=== PATIENT | male | born 1945 | race Caucasian/White ===

== ENCOUNTER → 2017-02-12 | Outpatient (CLI) | payer MEDICARE, OTHER ==
[~2017-02-12] VITALS: Ht 182.9 cm; Wt 97.7 kg
[~2017-02-12] MED LIST: AMLO10TA2 PO; AMLO10TA4 PO; ASPI-496 PO; ATOR40TA78 PO; CHOL10003 PO; CLOP75TA PO; CLOP75TA22 PO; ERGO500017 PO; LABE300T PO; LISI1TAB5 PO; METF750T2 PO; METHOCARBAMOL PO; MORP15TA39 PO; OXYC-302 PO; SPIRONOLACTONE PO; TIZANIDINE PO
[2017-02-12 11:11] LABS: HEMOGLOBIN 14.6 g/dL (13.7-18.0)
[2017-02-12 11:23] LABS: ASPARTATE AMINO TRANSFERASE 18 U/L (15-37); BLOOD UREA NITROGEN 8 mg/dL (7-18)
== END | disposition home or self-care (01) ==
LOC: STAR 09:52 → EDSTATUS 02-14 10:00
PROVIDERS: ATTEND Neurological Surgery
DX: Z01.818 Encounter for other preprocedural examination (principal); J44.9 Chronic obstructive pulmonary disease, unspecified; I10 Essential (primary) hypertension; M48.06 Spinal stenosis, lumbar region; R79.1 Abnormal coagulation profile; F17.200 Nicotine dependence, unspecified, uncomplicated
CPT/HCPCS: 36415; 71020; 80053; 81003; 85025; 85610; 85730; 86850; 86900; 93005

== ENCOUNTER → 2017-02-26 | Outpatient (CLI) | payer MEDICARE, OTHER ==
[~2017-02-26] MED LIST changes: +REGADENOSON 0.4 MG/5 ML SYRINGE ONE
== END | disposition home or self-care (01) ==
LOC: CFH 06:57
PROVIDERS: ATTEND Internal Medicine Cardiovascular Disease
DX: Z01.810 Encounter for preprocedural cardiovascular examination (principal); I08.1 Rheumatic disorders of both mitral and tricuspid valves; I37.1 Nonrheumatic pulmonary valve insufficiency; I10 Essential (primary) hypertension
CPT/HCPCS: 78452; 93017; 93306; A9502; J2785

== ENCOUNTER 2017-04-17 05:35 | Inpatient (IN) | payer MEDICARE, OTHER ==
[~2017-04-17] VITALS: Ht 182.9 cm; Wt 102.0 kg
[~2017-04-17 05:35] MED LIST changes: +LISI1TAB3 PO; -REGADENOSON 0.4 MG/5 ML SYRINGE ONE
[2017-04-17] MEDS ORDERED: AMLO5TAB2 PO (06:05)
[2017-04-17] MEDS ORDERED: OXYC-229 PO (06:05)
[2017-04-17 06:06] VITALS: BP 145/85
[2017-04-17] MEDS ORDERED: LACTATED RINGERS 1,000 ML IV SCH (06:10)
[2017-04-17] MEDS ORDERED: BACITRACIN 50,000 UNIT ONE (06:20)
[2017-04-17] MEDS ORDERED: BUPIVACAINE/PF-EPI 0.25% 1:200K ONE (06:20)
[2017-04-17] MEDS ORDERED: VANCOMYCIN 1,000 MG ONE ×2 (06:20→09:35)
[2017-04-17] MEDS ORDERED: THROMBIN 5,000 UNIT VIAL TP ONE (06:20)
[2017-04-17] MEDS ORDERED: REMIFENTANIL 2 MG ONE (06:54)
[2017-04-17] MEDS ORDERED: FENTANYL PF 250 MCG/5ML ONE (06:55)
[2017-04-17] MEDS ORDERED: MIDAZOLAM 1 MG/ML, 2ML ONE ×2 (06:55→10:28)
[2017-04-17] MEDS ORDERED: PROPOFOL 10 MG/ML, 20ML ONE (07:05)
[2017-04-17] MEDS ORDERED: ONDANSETRON 2MG/ML, 2ML ONE (07:05)
[2017-04-17] MEDS ORDERED: PROPOFOL 10 MG/ML, 50ML ONE (07:05)
[2017-04-17] MEDS ORDERED: DEXAMETHASONE 4 MG/ML, 1ML ONE (07:05)
[2017-04-17] MEDS ORDERED: CEFAZOLIN 1,000 MG ONE (07:05)
[2017-04-17] MEDS ORDERED: ROCURONIUM 10 MG/ML ONE (07:05)
[2017-04-17] MEDS ORDERED: SUCCINYLCHOLINE 20 MG/ML, 10ML ONE (07:05)
[2017-04-17] MEDS ORDERED: METOPROLOL 1 MG/ML, 5ML IV PRN (08:30)
[2017-04-17] MEDS ORDERED: MEPERIDINE/PF 25MG/0.5ML IVPush PRN (08:30)
[2017-04-17] MEDS ORDERED: OXYcodone 5 MG/5 ML ORAL.SOL UDC PO PRN (08:30)
[2017-04-17] MEDS ORDERED: PROMETHAZINE 25 MG/ML, 1ML IV PRN (08:30)
[2017-04-17] MEDS ORDERED: ACETAMINOPHEN 325 MG TABLET PO PRN (08:30)
[2017-04-17] MEDS ORDERED: ONDANSETRON 2MG/ML, 2ML IVPush PRN (08:30)
[2017-04-17] MEDS ORDERED: hydrALAzine 20 MG/ML, 1ML IV PRN (08:30)
[2017-04-17] MEDS ORDERED: LABETALOL 5MG/ML, 20ML IV PRN ×2 (08:30→13:30)
[2017-04-17] MEDS ORDERED: ALBUTEROL SULFATE 2.5 MG/3 ML NPPB PRN (08:30)
[2017-04-17] MEDS ORDERED: EPHEDRINE 50 MG/ML, 1ML IVPush PRN (08:30)
[2017-04-17] MEDS ORDERED: BUPIVACAINE/PF 0.25% INFIL ONE (09:51)
[2017-04-17] MEDS: FENTANYL PF 100 MCG/2ML IV PRN ×3 (10:25→11:51)
[2017-04-17] MEDS: HYDROmorphone 1 MG/ML, 1ML IV PRN ×2 (10:25→10:33)
[2017-04-17] MEDS ORDERED: HYDROmorphone 1 MG/ML, 1ML ONE (10:28)
[2017-04-17] MEDS ORDERED: OXYcodone 5 MG/5 ML ORAL.SOL UDC ONE (10:28)
[2017-04-17] MEDS ORDERED: HYDROmorphone PCA 30 MG/30 ML ONE (10:28)
[2017-04-17] MEDS ORDERED: ACETAMINOPHEN 650 MG/20.3 ML UDC ONE (10:28)
[2017-04-17] MEDS ORDERED: ACETAMINOPHEN 325 MG TABLET ONE (10:28)
[2017-04-17] MEDS ORDERED: FENTANYL PF 100 MCG/2ML ONE (10:39)
[2017-04-17] MEDS ORDERED: CYCLOBENZAPRINE 10 MG TABLET ONE (10:39)
[2017-04-17] MEDS: MIDAZOLAM 1 MG/ML, 2ML IV PRN ×2 (10:47→11:16)
[2017-04-17] MEDS ORDERED: CYCLOBENZAPRINE 10 MG TABLET PO ONE (11:00)
[2017-04-17] MEDS ORDERED: HYDROmorphone PCA 30 MG/30 ML IV PRN (11:00)
[2017-04-17] MEDS ORDERED: LABETALOL 5MG/ML, 20ML ONE (11:17)
[2017-04-17] MEDS ORDERED: DIPHENHYDRAMINE 50 MG CAPSULE PO PRN (13:30)
[2017-04-17] MEDS ORDERED: MEPERIDINE/PF 100 MG/ML IM PRN (13:30)
[2017-04-17] MEDS ORDERED: morphine SULFATE 10 MG/ML, 1ML IV PRN (13:30)
[2017-04-17] MEDS ORDERED: BISACODYL 10 MG SUPP PR PRN (13:30)
[2017-04-17] MEDS ORDERED: HYDROcodone/APAP 5/325 TABLET PO PRN (13:30)
[2017-04-17] MEDS ORDERED: MAGNESIUM HYDROXIDE 8%, 30ML UDC PO PRN (13:30)
[2017-04-17] MEDS ORDERED: ONDANSETRON 2MG/ML, 2ML IV PRN (13:30)
[2017-04-17] MEDS ORDERED: PROMETHAZINE 25 MG/ML, 1ML IM PRN (13:30)
[2017-04-17] MEDS: NS + 20MEQ KCL 1,000 ML IV SCH (14:00)
[2017-04-17] MEDS: CEFAZOLIN PMX 1GM/50ML 50 ML IVPB SCH ×2 (15:39→23:23)
[2017-04-17] MEDS: INSULIN REGULAR 100 UNITS/ML, 3ML VIAL SQ-INSULIN SCH ×2 (16:00→20:32)
[2017-04-17] MEDS: HYDROCHLOROTHIAZIDE 12.5 MG CAPSULE PO SCH (17:36)
[2017-04-17] MEDS: metFORMIN 500 MG TABLET PO SCH (17:36)
[2017-04-17] MEDS: LABETALOL 100 MG TABLET PO SCH (17:37)
[2017-04-17 19:47] VITALS: BP 160/73
[2017-04-17] MEDS: ATORVASTATIN 40 MG TABLET PO SCH (20:33)
[2017-04-17] MEDS: AMLODIPINE 5 MG TABLET PO SCH (20:33)
[2017-04-17] MEDS: LISINOPRIL 10 MG TABLET PO SCH (20:33)
[2017-04-17] MEDS: CYCLOBENZAPRINE 10 MG TABLET PO PRN (23:23)
[2017-04-18] MEDS: NS + 20MEQ KCL 1,000 ML IV SCH ×3 (00:02→21:19)
[2017-04-18 00:22] VITALS: BP 165/74
[2017-04-18 02:57] VITALS: BP 160/73
[2017-04-18 06:20] VITALS: BP 165/81
[2017-04-18] MEDS: HYDROCHLOROTHIAZIDE 12.5 MG CAPSULE PO SCH ×2 (06:21→16:32)
[2017-04-18 06:55] VITALS: BP 162/73
[2017-04-18] MEDS: INSULIN REGULAR 100 UNITS/ML, 3ML VIAL SQ-INSULIN SCH ×4 (08:07→21:20)
[2017-04-18] MEDS: CYCLOBENZAPRINE 10 MG TABLET PO PRN ×2 (08:15→20:07)
[2017-04-18] MEDS: SENNA/DOCUSATE TABLET PO SCH (08:15)
[2017-04-18] MEDS: metFORMIN 500 MG TABLET PO SCH ×2 (08:16→16:31)
[2017-04-18] MEDS: LISINOPRIL 10 MG TABLET PO SCH ×2 (08:16→21:19)
[2017-04-18] MEDS: AMLODIPINE 5 MG TABLET PO SCH ×2 (08:16→21:19)
[2017-04-18] MEDS: LABETALOL 100 MG TABLET PO SCH ×2 (08:16→16:34)
[2017-04-18] MEDS ORDERED: HYDROmorphone PCA 30 MG/30 ML IV PRN (08:29)
[2017-04-18] MEDS: OXYcodone IR 5MG TABLET PO PRN ×3 (10:03→23:55)
[2017-04-18 13:12] VITALS: BP 114/59
[2017-04-18] MEDS: KETOROLAC 30 MG/1 ML IVPush PRN (19:12)
[2017-04-18 20:42] VITALS: BP 163/71
[2017-04-18] MEDS: ATORVASTATIN 40 MG TABLET PO SCH (21:19)
[2017-04-19] VITALS: BP 168/78
[2017-04-19] MEDS: KETOROLAC 30 MG/1 ML IVPush PRN (01:41)
[2017-04-19 04:01] VITALS: BP 158/74
[2017-04-19] MEDS: NS + 20MEQ KCL 1,000 ML IV SCH (05:16)
[2017-04-19] MEDS: HYDROCHLOROTHIAZIDE 12.5 MG CAPSULE PO SCH (06:59)
[2017-04-19 07:03] VITALS: BP 157/74
[2017-04-19] MEDS: OXYcodone/APAP 10/325MG TABLET PO PRN ×2 (07:05→13:55)
[2017-04-19] MEDS: INSULIN REGULAR 100 UNITS/ML, 3ML VIAL SQ-INSULIN SCH ×2 (08:46→11:00)
[2017-04-19] MEDS: LISINOPRIL 10 MG TABLET PO SCH (08:54)
[2017-04-19] MEDS: CYCLOBENZAPRINE 10 MG TABLET PO PRN (08:54)
[2017-04-19] MEDS: SENNA/DOCUSATE TABLET PO SCH (08:54)
[2017-04-19] MEDS: metFORMIN 500 MG TABLET PO SCH (08:55)
[2017-04-19] MEDS: AMLODIPINE 5 MG TABLET PO SCH (08:55)
[2017-04-19] MEDS: LABETALOL 100 MG TABLET PO SCH (08:55)
[2017-04-19 13:46] VITALS: BP 180/90
[2017-04-19 14:13] VITALS: BP 159/75
[2017-04-19] MEDS ORDERED: OXYC-229 PO (15:17)
[2017-04-19] MEDS ORDERED: CYCL-259 PO (15:18)
[2017-04-19] MEDS ORDERED: CEPH-368 PO (15:19)
== END 2017-04-19 15:40 | disposition home or self-care (01) | DRG 471 ==
LOC: ORIP 05:35 → MERGE 07:00 → 4NOR 12:24 → DCLOUNGE 04-19 15:21
PROVIDERS: ADMIT Neurological Surgery; ATTEND Neurological Surgery
PROC: 0RG2071 Fusion of 2 or more Cervical Vertebral Joints with Autologous Tissue Substitute, Posterior Approach, Posterior Column, Open Approach (ICD-10-PCS; 2017-04-17)
PROC: 0RG4071 Fusion of Cervicothoracic Vertebral Joint with Autologous Tissue Substitute, Posterior Approach, Posterior Column, Open Approach (ICD-10-PCS; 2017-04-17)
PROC: 4A11X4G Monitoring of Peripheral Nervous Electrical Activity, Intraoperative, External Approach (ICD-10-PCS; principal; 2017-04-17 07:00)
DX: M48.02 Spinal stenosis, cervical region (principal); J96.20 Acute and chronic respiratory failure, unspecified whether with hypoxia or hypercapnia; G95.89 Other specified diseases of spinal cord; G95.20 Unspecified cord compression; I73.9 Peripheral vascular disease, unspecified; M48.04 Spinal stenosis, thoracic region; M53.2X2 Spinal instabilities, cervical region; Z98.1 Arthrodesis status; Z88.8 Allergy status to other drugs, medicaments and biological substances
CPT/HCPCS: 36415; 82962; 86850; 86900; C1713; J0690; J1100; J1170; J1815; J1885; J2250; J2405; J2704; J3010; J3370; J3480; J3490; J0330; J7120

== ENCOUNTER 2017-04-27 03:10 | Inpatient (IN) | payer MEDICARE, OTHER ==
[~2017-04-27] VITALS: Ht 182.9 cm; Wt 89.2 kg
[~2017-04-27 03:10] MED LIST changes: +AMLO5TAB2 PO; +CEPH-368 PO; +CYCL-259 PO; +MORP-52 PO; -MORP15TA39 PO; +OXYC-229 PO
[2017-04-27] MEDS ORDERED: ONDANSETRON 2MG/ML, 2ML ONE (04:29)
[2017-04-27] MEDS ORDERED: MORPHINE SULFATE 4 MG/ML, 1ML ONE ×2 (04:29→05:26)
[2017-04-27] MEDS ORDERED: ONDANSETRON 2MG/ML, 2ML IVPush ONE (04:30)
[2017-04-27] MEDS: MORPHINE SULFATE 4 MG/ML, 1ML IVPush PRN ×2 (04:33→05:29)
[2017-04-27 04:53] LABS: BLOOD UREA NITROGEN 9 mg/dL (7-18)
[2017-04-27] MEDS ORDERED: OMNIPAQUE 350 MG/ML, 150 ML BOTTLE ONE (05:03)
[2017-04-27] MEDS ORDERED: MORPHINE SULFATE 4 MG/ML, 1ML IVPush PRN ×2 (06:00→07:30)
[2017-04-27] MEDS ORDERED: HEPARIN 5,000 UNITS/ML, 1ML IV ONE (06:30)
[2017-04-27 06:46] LABS: ANTI-Xa-UNFRACTIONATED HEP 0.03 IU/mL (0.30-0.70)
[2017-04-27] MEDS ORDERED: HEPARIN 25,000 UNITS/500ML PMX 500 ML ONE (06:50)
[2017-04-27] MEDS ORDERED: HEPARIN 5,000 UNITS/ML, 1ML ONE (06:51)
[2017-04-27] MEDS ORDERED: SODIUM CHLORIDE 0.9% 1,000 ML IV ONE (07:01)
[2017-04-27] MEDS: HEPARIN 25,000 UNITS/500ML PMX 500 ML IV PRN (07:09)
[2017-04-27] MEDS ORDERED: ONDANSETRON 2MG/ML, 2ML IVPush PRN ×2 (07:30→08:00)
[2017-04-27] MEDS ORDERED: FOLIC ACID 1 MG TABLET PO ONE (08:00)
[2017-04-27] MEDS ORDERED: POLYETHYLENE GLYCOL 17 GM PACKET PO PRN (08:00)
[2017-04-27] MEDS ORDERED: DOCUSATE 100 MG CAPSULE PO PRN (08:00)
[2017-04-27] MEDS ORDERED: LABETALOL 100 MG TABLET PO SCH (08:00)
[2017-04-27] MEDS ORDERED: BISACODYL 10 MG SUPP PR PRN (08:00)
[2017-04-27] MEDS ORDERED: LABETALOL 5MG/ML 40ML VIAL IVPush PRN (08:00)
[2017-04-27] MEDS ORDERED: ACETAMINOPHEN 325 MG TABLET PO PRN (08:00)
[2017-04-27] MEDS: SODIUM CHLORIDE FLUSH 3ML SYRINGE IVF SCH ×2 (09:00→21:00)
[2017-04-27] MEDS: HYDROcodone/APAP 5/325 TABLET PO PRN ×2 (09:58→22:29)
[2017-04-27] MEDS: THIAMINE 100MG TABLET PO SCH (09:59)
[2017-04-27] MEDS: MULTIVITAMIN 1 TABLET PO SCH (10:00)
[2017-04-27] MEDS: HYDROCHLOROTHIAZIDE 12.5 MG CAPSULE PO SCH ×2 (10:00→18:21)
[2017-04-27] MEDS: AMLODIPINE 5 MG TABLET PO SCH ×2 (10:00→22:29)
[2017-04-27] MEDS: LISINOPRIL 10 MG TABLET PO SCH ×2 (10:00→22:30)
[2017-04-27 10:24] VITALS: BP 167/54
[2017-04-27] MEDS: morphine SULFATE 10 MG/ML, 1ML IVPush PRN ×2 (11:31→15:44)
[2017-04-27] MEDS: HEPARIN 5,000 UNITS/ML, 1ML IV PRN ×2 (14:39→21:59)
[2017-04-27 14:41] VITALS: BP 137/72
[2017-04-27 19:27] VITALS: BP 158/80
[2017-04-27] MEDS: ATORVASTATIN 40 MG TABLET PO SCH (22:29)
[2017-04-28] MEDS: HYDROcodone/APAP 5/325 TABLET PO PRN ×4 (02:28→22:28)
[2017-04-28 02:30] VITALS: BP 169/85
[2017-04-28 05:06] LABS: BLOOD UREA NITROGEN 6 mg/dL (7-18)
[2017-04-28] MEDS: HEPARIN 5,000 UNITS/ML, 1ML IV PRN ×2 (05:40→17:51)
[2017-04-28] MEDS: HYDROCHLOROTHIAZIDE 12.5 MG CAPSULE PO SCH ×2 (05:41→18:24)
[2017-04-28] MEDS: HEPARIN 25,000 UNITS/500ML PMX 500 ML IV PRN ×2 (06:51→07:22)
[2017-04-28 07:14] VITALS: BP 168/84
[2017-04-28] MEDS: AMLODIPINE 5 MG TABLET PO SCH ×2 (07:27→20:27)
[2017-04-28] MEDS: THIAMINE 100MG TABLET PO SCH (07:27)
[2017-04-28] MEDS: MULTIVITAMIN 1 TABLET PO SCH (07:27)
[2017-04-28] MEDS: LISINOPRIL 10 MG TABLET PO SCH (07:27)
[2017-04-28 07:28] VITALS: BP 163/83
[2017-04-28] MEDS: SODIUM CHLORIDE FLUSH 3ML SYRINGE IVF SCH ×2 (07:28→20:27)
[2017-04-28] MEDS ORDERED: LABETALOL 100 MG TABLET PO PRN (13:30)
[2017-04-28 16:18] VITALS: BP 145/81
[2017-04-28 19:00] VITALS: BP_SYST 172; BP_SYST 183; BP_DIAS 84; BP_DIAS 87
[2017-04-28] MEDS: ATORVASTATIN 40 MG TABLET PO SCH (20:27)
[2017-04-28] MEDS: LISINOPRIL 20 MG TABLET PO SCH (20:27)
[2017-04-29 00:36] VITALS: BP_SYST 160; BP_SYST 168; BP_DIAS 77; BP_DIAS 81
[2017-04-29] MEDS: HEPARIN 25,000 UNITS/500ML PMX 500 ML IV PRN (01:24)
[2017-04-29] MEDS: HYDROcodone/APAP 5/325 TABLET PO PRN ×3 (05:21→22:44)
[2017-04-29] MEDS: HYDROCHLOROTHIAZIDE 12.5 MG CAPSULE PO SCH ×2 (05:21→18:24)
[2017-04-29 06:43] LABS: BLOOD UREA NITROGEN 6 mg/dL (7-18)
[2017-04-29 08:12] VITALS: BP 185/96
[2017-04-29] MEDS: THIAMINE 100MG TABLET PO SCH (09:00)
[2017-04-29] MEDS: LISINOPRIL 20 MG TABLET PO SCH ×2 (09:00→19:45)
[2017-04-29] MEDS: SODIUM CHLORIDE FLUSH 3ML SYRINGE IVF SCH (09:00)
[2017-04-29] MEDS: MULTIVITAMIN 1 TABLET PO SCH (09:00)
[2017-04-29] MEDS: AMLODIPINE 5 MG TABLET PO SCH ×2 (09:00→20:26)
[2017-04-29] MEDS ORDERED: LABETALOL 100 MG TABLET PO SCH (09:15)
[2017-04-29] MEDS ORDERED: THROMBIN 20,000 UNIT VIAL TP ONE (09:25)
[2017-04-29] MEDS ORDERED: HEPARIN 1,000 UNITS/ML, 10ML ONE (09:25)
[2017-04-29] MEDS ORDERED: PROTAMINE SULFATE 10 MG/ML, 5ML ONE (09:25)
[2017-04-29] MEDS ORDERED: BACITRACIN 50,000 UNIT ONE (09:44)
[2017-04-29] MEDS ORDERED: SUCCINYLCHOLINE 20 MG/ML, 10ML ONE (10:25)
[2017-04-29] MEDS ORDERED: ROCURONIUM 10 MG/ML ONE (10:25)
[2017-04-29] MEDS ORDERED: PROPOFOL 10 MG/ML, 20ML ONE (10:25)
[2017-04-29] MEDS ORDERED: CEFAZOLIN 1,000 MG ONE (10:25)
[2017-04-29] MEDS ORDERED: METOCLOPRAMIDE 5 MG/ML, 2ML ONE (10:25)
[2017-04-29] MEDS ORDERED: ONDANSETRON 2MG/ML, 2ML ONE (10:25)
[2017-04-29] MEDS ORDERED: LABETALOL 5MG/ML 40ML VIAL ONE (10:25)
[2017-04-29] MEDS ORDERED: FENTANYL PF 250 MCG/5ML ONE (10:41)
[2017-04-29] MEDS ORDERED: ONDANSETRON 2MG/ML, 2ML IVPush PRN (11:30)
[2017-04-29] MEDS ORDERED: MEPERIDINE/PF 25MG/0.5ML IVPush PRN (11:30)
[2017-04-29] MEDS ORDERED: MIDAZOLAM 1 MG/ML, 5ML IV PRN (11:30)
[2017-04-29] MEDS ORDERED: hydrALAzine 20 MG/ML, 1ML IV PRN (11:30)
[2017-04-29] MEDS ORDERED: LABETALOL 5MG/ML, 20ML IV PRN (11:30)
[2017-04-29] MEDS ORDERED: PROMETHAZINE 25 MG/ML, 1ML IV PRN (11:30)
[2017-04-29] MEDS ORDERED: OXYcodone 5 MG/5 ML ORAL.SOL UDC PO PRN (11:30)
[2017-04-29] MEDS ORDERED: HYDROmorphone 1 MG/ML, 1ML ONE (13:07)
[2017-04-29] MEDS ORDERED: FENTANYL PF 100 MCG/2ML ONE ×2 (13:07→14:23)
[2017-04-29] MEDS: FENTANYL PF 100 MCG/2ML IV PRN ×2 (13:10→13:25)
[2017-04-29] MEDS: HYDROmorphone 1 MG/ML, 1ML IV PRN ×4 (13:15→13:45)
[2017-04-29] MEDS ORDERED: ACETAMINOPHEN 650 MG/20.3 ML UDC ONE (14:23)
[2017-04-29] MEDS ORDERED: OXYcodone 5 MG/5 ML ORAL.SOL UDC ONE (14:24)
[2017-04-29] MEDS ORDERED: ACETAMINOPHEN 325 MG TABLET PO PRN (14:30)
[2017-04-29 15:10] VITALS: BP 151/80
[2017-04-29] MEDS ORDERED: ONDANSETRON 2MG/ML, 2ML IV PRN (15:30)
[2017-04-29] MEDS ORDERED: MEPERIDINE/PF 50 MG/ML IV PRN (15:30)
[2017-04-29] MEDS ORDERED: CEFAZOLIN PMX 1GM/50ML 50 ML IVPB SCH (15:30)
[2017-04-29] MEDS: morphine SULFATE 10 MG/ML, 1ML IV PRN ×2 (15:47→21:40)
[2017-04-29] MEDS ORDERED: OXYcodone/APAP 5/325MG TABLET PO PRN (16:30)
[2017-04-29] MEDS: CEFAZOLIN PMX 1GM/50ML 50 ML IVPB SCH (18:10)
[2017-04-29] MEDS: POTASSIUM CHLORIDE 20 MEQ in LACTATED RINGERS 1,000 ML IV SCH (18:10)
[2017-04-29 19:52] VITALS: BP 142/78
[2017-04-29] MEDS: ATORVASTATIN 40 MG TABLET PO SCH (20:26)
[2017-04-29] MEDS ORDERED: LABETALOL 100 MG TABLET PO PRN (21:00)
[2017-04-29] MEDS ORDERED: LISINOPRIL 10 MG TABLET PO SCH (21:00)
[2017-04-29 23:43] VITALS: BP 145/84
[2017-04-30] MEDS: morphine SULFATE 10 MG/ML, 1ML IV PRN ×2 (01:48→22:31)
[2017-04-30] MEDS: HYDROcodone/APAP 5/325 TABLET PO PRN ×5 (02:30→21:39)
[2017-04-30] MEDS: CEFAZOLIN PMX 1GM/50ML 50 ML IVPB SCH (02:30)
[2017-04-30] MEDS: POTASSIUM CHLORIDE 20 MEQ in LACTATED RINGERS 1,000 ML IV SCH (02:30)
[2017-04-30] MEDS: HYDROCHLOROTHIAZIDE 12.5 MG CAPSULE PO SCH ×2 (06:15→19:56)
[2017-04-30] MEDS: ENOXAPARIN 40 MG/0.4 ML SQ SCH (06:16)
[2017-04-30 07:53] VITALS: BP 144/84
[2017-04-30] MEDS ORDERED: metFORMIN XR 500 MG TAB.ER.24H PO SCH (08:00)
[2017-04-30] MEDS: THIAMINE 100MG TABLET PO SCH (09:43)
[2017-04-30] MEDS: AMLODIPINE 5 MG TABLET PO SCH ×2 (09:43→19:56)
[2017-04-30] MEDS: LISINOPRIL 20 MG TABLET PO SCH ×2 (09:43→19:56)
[2017-04-30] MEDS: MULTIVITAMIN 1 TABLET PO SCH (09:43)
[2017-04-30] MEDS: ASPIRIN 81 MG TABLET CHEW PO SCH (09:43)
[2017-04-30 10:29] LABS: BLOOD UREA NITROGEN 10 mg/dL (7-18)
[2017-04-30 12:38] VITALS: BP 151/88
[2017-04-30] MEDS: CYCLOBENZAPRINE 10 MG TABLET PO PRN (19:55)
[2017-04-30] MEDS: ATORVASTATIN 40 MG TABLET PO SCH (19:56)
[2017-04-30 20:24] VITALS: BP 161/80
[2017-05-01 03:43] VITALS: BP 151/76
[2017-05-01] MEDS: HYDROcodone/APAP 5/325 TABLET PO PRN ×5 (05:44→22:54)
[2017-05-01] MEDS: ENOXAPARIN 40 MG/0.4 ML SQ SCH (05:44)
[2017-05-01 06:36] LABS: BLOOD UREA NITROGEN 9 mg/dL (7-18)
[2017-05-01 07:55] VITALS: BP 134/78
[2017-05-01] MEDS: THIAMINE 100MG TABLET PO SCH (08:18)
[2017-05-01] MEDS: ASPIRIN 81 MG TABLET CHEW PO SCH (08:18)
[2017-05-01] MEDS: LISINOPRIL 20 MG TABLET PO SCH ×2 (08:19→21:11)
[2017-05-01] MEDS: AMLODIPINE 5 MG TABLET PO SCH ×2 (08:19→21:11)
[2017-05-01] MEDS: MULTIVITAMIN 1 TABLET PO SCH (08:19)
[2017-05-01] MEDS: HYDROCHLOROTHIAZIDE 12.5 MG CAPSULE PO SCH ×2 (08:19→21:12)
[2017-05-01] MEDS: morphine SULFATE 10 MG/ML, 1ML IV PRN ×3 (08:19→20:01)
[2017-05-01 13:24] VITALS: BP 131/69
[2017-05-01 20:22] VITALS: BP 169/85
[2017-05-01] MEDS: ATORVASTATIN 40 MG TABLET PO SCH (21:12)
[2017-05-02 03:12] VITALS: BP 156/83
[2017-05-02] MEDS: HYDROcodone/APAP 5/325 TABLET PO PRN ×3 (05:02→13:33)
[2017-05-02 08:30] VITALS: BP 150/86
[2017-05-02] MEDS: ASPIRIN 81 MG TABLET CHEW PO SCH (09:10)
[2017-05-02] MEDS: AMLODIPINE 5 MG TABLET PO SCH (09:10)
[2017-05-02] MEDS: MULTIVITAMIN 1 TABLET PO SCH (09:10)
[2017-05-02] MEDS: LISINOPRIL 20 MG TABLET PO SCH (09:10)
[2017-05-02] MEDS: ENOXAPARIN 40 MG/0.4 ML SQ SCH (09:11)
[2017-05-02] MEDS: HYDROCHLOROTHIAZIDE 12.5 MG CAPSULE PO SCH (09:11)
[2017-05-02] MEDS: THIAMINE 100MG TABLET PO SCH (09:11)
[2017-05-02] MEDS: CYCLOBENZAPRINE 10 MG TABLET PO PRN (10:55)
[2017-05-02] MEDS ORDERED: OXYC-229 PO (12:22)
== END 2017-05-02 15:00 | disposition home or self-care (01) | DRG 253 ==
LOC: ED 04:04 → EDIP 07:01 → 3NE 08:46 → 4NOR 04-29 13:15 → DCLOUNGE 05-02 14:47
PROVIDERS: ADMIT Internal Medicine; ATTEND Internal Medicine
PROC: 06BP0ZZ Excision of Right Saphenous Vein, Open Approach (ICD-10-PCS; 2017-04-29)
PROC: 041K09L Bypass Right Femoral Artery to Popliteal Artery with Autologous Venous Tissue, Open Approach (ICD-10-PCS; principal; 2017-04-29 10:30)
DX: I70.211 Atherosclerosis of native arteries of extremities with intermittent claudication, right leg (principal); E44.0 Moderate protein-calorie malnutrition; E87.1 Hypo-osmolality and hyponatremia; I70.8 Atherosclerosis of other arteries; E11.51 Type 2 diabetes mellitus with diabetic peripheral angiopathy without gangrene; D53.9 Nutritional anemia, unspecified; E78.5 Hyperlipidemia, unspecified; F17.210 Nicotine dependence, cigarettes, uncomplicated; M54.9 Dorsalgia, unspecified; G89.29 Other chronic pain; G47.33 Obstructive sleep apnea (adult) (pediatric); I11.9 Hypertensive heart disease without heart failure; Z82.49 Family history of ischemic heart disease and other diseases of the circulatory system; Z83.3 Family history of diabetes mellitus; Z90.89 Acquired absence of other organs; Z90.49 Acquired absence of other specified parts of digestive tract; Z79.899 Other long term (current) drug therapy; Z71.6 Tobacco abuse counseling; Z79.84 Long term (current) use of oral hypoglycemic drugs; Z79.82 Long term (current) use of aspirin; Z68.27 Body mass index [BMI] 27.0-27.9, adult; Z88.3 Allergy status to other anti-infective agents
CPT/HCPCS: 36415; 71010; 80048; 80061; 82040; 82607; 82728; 82746; 83036; 83540; 83550; 83605; 84466; 85025; 85520; 85610; 85730; 93005; 96374; 96375; 96376; J0690; J1170; J1644; J1650; J2175; J2405; J2704; J2720; J3010; J3480; Q9967; J0330; J2270; J2765; J7120

== ENCOUNTER → 2017-05-16 | Outpatient (CLI) | payer MEDICARE, OTHER | END | disposition home or self-care (01) | LOC: WOUND 08:02 | PROVIDERS: ATTEND Podiatrist Foot & Ankle Surgery | DX: E11.621 Type 2 diabetes mellitus with foot ulcer (principal); L97.411 Non-pressure chronic ulcer of right heel and midfoot limited to breakdown of skin; L97.511 Non-pressure chronic ulcer of other part of right foot limited to breakdown of skin; E78.5 Hyperlipidemia, unspecified; E11.51 Type 2 diabetes mellitus with diabetic peripheral angiopathy without gangrene; I11.0 Hypertensive heart disease with heart failure; I50.9 Heart failure, unspecified; I25.2 Old myocardial infarction; G47.33 Obstructive sleep apnea (adult) (pediatric); F17.211 Nicotine dependence, cigarettes, in remission; Z79.899 Other long term (current) drug therapy; Z72.89 Other problems related to lifestyle; Z90.89 Acquired absence of other organs; Z90.49 Acquired absence of other specified parts of digestive tract; Z68.27 Body mass index [BMI] 27.0-27.9, adult; Z79.84 Long term (current) use of oral hypoglycemic drugs; Z71.6 Tobacco abuse counseling | CPT/HCPCS: 11042; G0463; WOU0463 ==

== ENCOUNTER → 2017-05-23 | Outpatient (CLI) | payer MEDICARE, OTHER | END | disposition home or self-care (01) | LOC: WOUND 10:07 | PROVIDERS: ATTEND Podiatrist Foot & Ankle Surgery | DX: E11.621 Type 2 diabetes mellitus with foot ulcer (principal); L97.511 Non-pressure chronic ulcer of other part of right foot limited to breakdown of skin; E78.5 Hyperlipidemia, unspecified; E11.51 Type 2 diabetes mellitus with diabetic peripheral angiopathy without gangrene; I25.2 Old myocardial infarction; I11.0 Hypertensive heart disease with heart failure; I50.9 Heart failure, unspecified; Z72.89 Other problems related to lifestyle; F17.211 Nicotine dependence, cigarettes, in remission; G89.29 Other chronic pain; Z88.8 Allergy status to other drugs, medicaments and biological substances; Z88.3 Allergy status to other anti-infective agents | CPT/HCPCS: 97597 ==

== ENCOUNTER → 2017-07-04 | Outpatient (CLI) | payer MEDICARE, OTHER ==
[~2017-07-04] MED LIST changes: -CLOP75TA22 PO; +CLOP75TA52 PO; -OXYC-229 PO; +OXYC-307 PO
== END | disposition home or self-care (01) ==
LOC: CFH 10:23
PROVIDERS: ATTEND Neurological Surgery
DX: M50.33 Other cervical disc degeneration, cervicothoracic region (principal); M43.12 Spondylolisthesis, cervical region
CPT/HCPCS: 72125

== ENCOUNTER 2018-05-19 05:36 | Day surgery (SDC) | payer MEDICARE, OTHER ==
[2018-05-16 14:40] LABS: BASOPHILS # (AUTO) 0.03 x10^3/uL (0-0.1); BASOPHILS % (AUTO) 0 % (0-1); EOSINOPHILS # (AUTO) 0.27 x10^3/uL (0-0.4); EOSINOPHILS % (AUTO) 3 % (1-7); LYMPHOCYTES # (AUTO) 1.57 x10^3/uL (1-3.4); LYMPHOCYTES % (AUTO) 20 % (22-44); MD NO; MEAN CORPUSCULAR HEMOGLOBIN 35.3 pg (27.5-34.5); MEAN CORPUSCULAR HGB CONC 34.4 g/dL (33.2-36.2); MEAN CORPUSCULAR VOLUME 102.6 fL (81-97); MEAN PLATELET VOLUME 7.1 fL (7.4-10.4); MONOCYTES # (AUTO) 0.83 x10^3/uL (0.2-0.8); MONOCYTES % (AUTO) 10 % (2-9); NEUTROPHILS # (AUTO) 5.29 x10^3/uL (1.8-6.8); NEUTROPHILS % (AUTO) 66 % (42-75); PLATELET COUNT 204 x10^3/uL (130-400); RED BLOOD COUNT 4.18 x10^6/uL (4.38-5.82); RED CELL DISTRIBUTION WIDTH 14.1 % (9.4-14.8)
[2018-05-16 14:49] LABS: CREATININE 1.28 mg/dL (0.7-1.3)
[2018-05-16 14:51] LABS: INTERNATIONAL NORMALIZED RATIO 1.02 (0.93-1.1); PROTHROMBIN TIME 10.6 Seconds (9.6-11.5)
[~2018-05-19] VITALS: Ht 180.3 cm; Wt 97.0 kg
[~2018-05-19 05:36] MED LIST changes: +CARV12.52 PO; +CHOL500015 PO; +FURO-92 PO; -LABE300T PO; +LABE300T2 PO; +LISI40TA PO
[2018-05-19 06:28] VITALS: BP 159/73
[2018-05-19] MEDS ORDERED: FLUMAZENIL 0.1 MG/1 ML, 5ML ONE (07:13)
[2018-05-19] MEDS ORDERED: PROTAMINE SULFATE 10 MG/ML, 25ML ONE (07:13)
[2018-05-19] MEDS ORDERED: NALOXONE 1 MG/ML, 2ML ONE (07:13)
[2018-05-19] MEDS ORDERED: MIDAZOLAM 1 MG/ML, 5ML ONE (07:13)
[2018-05-19] MEDS ORDERED: HEPARIN 1,000 UNITS/ML, 10ML ONE (07:13)
[2018-05-19] MEDS ORDERED: FENTANYL PF 100 MCG/2ML ONE (07:13)
[2018-05-19] MEDS ORDERED: VISIPAQUE 270 MG/ML, 150ML BOTTLE ONE (08:00)
== END 2018-05-19 11:30 ==
LOC: OUT 05:36
PROVIDERS: ATTEND Surgery
DX: I70.201 Unspecified atherosclerosis of native arteries of extremities, right leg (principal); I10 Essential (primary) hypertension; Z98.890 Other specified postprocedural states
CPT/HCPCS: 36200; 36415; 75630; 82565; 84520; 85025; 85610; 85730; 99156; 99157; C1751; C1769; C1894; J2250; J3010; Q9966; 36246; J1644; J2720; J2310

== ENCOUNTER → 2018-06-06 | Outpatient (CLI) | payer MEDICARE, OTHER | END | disposition home or self-care (01) | LOC: CFH 15:57 | PROVIDERS: ATTEND Neurological Surgery | DX: M50.10 Cervical disc disorder with radiculopathy, unspecified cervical region (principal); E04.1 Nontoxic single thyroid nodule | CPT/HCPCS: 72125 ==

== ENCOUNTER → 2019-09-23 | Outpatient (CLI) | payer MEDICARE, OTHER ==
[~2019-09-23] MED LIST changes: +AMLO-150 PO; -AMLO10TA2 PO; +AMLO10TA8 PO; -AMLO5TAB2 PO; +AZIT250T89 PO; +BENZ-17 PO; +CEFD300C37 PO; +GUAI600T31 PO; +LISI1TAB19 PO; +LISI1TAB23 PO; -LISI1TAB3 PO; -LISI1TAB5 PO; -METF750T2 PO; +METF750T42 PO; +METH4TAB2 PO
== END | disposition home or self-care (01) ==
LOC: CVU 12:25
PROVIDERS: ATTEND Surgery
DX: I70.213 Atherosclerosis of native arteries of extremities with intermittent claudication, bilateral legs (principal)
CPT/HCPCS: 93922; 93925

== ENCOUNTER 2019-10-07 11:01 | Day surgery (SDC) | payer MEDICARE, OTHER ==
[~2019-10-07] VITALS: Ht 180.3 cm; Wt 99.4 kg
[2019-10-07 11:48] VITALS: BP 165/84
[2019-10-07] MEDS ORDERED: SODIUM CHLORIDE 0.9% 1,000 ML IV SCH (11:50)
[2019-10-07] MEDS ORDERED: SODIUM CHLORIDE 0.9% 1,000 ML IV ONE (12:00)
[2019-10-07] MEDS ORDERED: METF500T17 PO (12:23)
[2019-10-07] MEDS ORDERED: HYDR12.517 PO (12:23)
[2019-10-07] MEDS ORDERED: ASPI-496 PO (12:26)
[2019-10-07] MEDS ORDERED: MIDAZOLAM 1 MG/ML, 5ML ONE (12:30)
[2019-10-07] MEDS ORDERED: FENTANYL PF 100 MCG/2ML ONE (12:30)
[2019-10-07] MEDS ORDERED: HEPARIN 1,000 UNITS/ML, 10ML ONE (12:30)
[2019-10-07] MEDS ORDERED: FLUMAZENIL 0.1 MG/1 ML, 5ML ONE (12:30)
[2019-10-07] MEDS ORDERED: NALOXONE 1 MG/ML, 2ML ONE (12:30)
[2019-10-07 12:41] LABS: MEAN CORPUSCULAR HGB CONC 34.2 g/dL (33.2-36.2); MEAN CORPUSCULAR VOLUME 111.3 fL (81-97); MEAN PLATELET VOLUME 7.7 fL (7.4-10.4); PLATELET COUNT 233 x10^3/uL (130-400); RED BLOOD COUNT 3.63 x10^6/uL (4.38-5.82); RED CELL DISTRIBUTION WIDTH 14.4 % (9.4-14.8)
[2019-10-07 12:52] LABS: PROTHROMBIN TIME 10.5 Seconds (9.6-11.5)
[2019-10-07] MEDS ORDERED: LIDOCAINE 1%, 10ML ONE (12:55)
[2019-10-07 12:56] LABS: CREATININE 1.33 mg/dL (0.7-1.3)
[2019-10-07 12:57] LABS: BASOPHILS # (AUTO) 0.02 x10^3/uL (0-0.1); BASOPHILS % (AUTO) 0 % (0-1); EOSINOPHILS # (AUTO) 0.28 x10^3/uL (0-0.4); EOSINOPHILS % (AUTO) 4 % (1-7); LYMPHOCYTES # (AUTO) 1.52 x10^3/uL (1-3.4); LYMPHOCYTES % (AUTO) 21 % (22-44); MD SCAN; MONOCYTES # (AUTO) 0.69 x10^3/uL (0.2-0.8); MONOCYTES % (AUTO) 10 % (2-9); NEUTROPHILS # (AUTO) 4.68 x10^3/uL (1.8-6.8); NEUTROPHILS % (AUTO) 65 % (42-75)
[2019-10-07] MEDS ORDERED: VISIPAQUE 270 MG/ML, 150ML BOTTLE ONE (13:58)
== END 2019-10-07 15:55 | disposition home or self-care (01) ==
LOC: OUT 11:01
PROVIDERS: ATTEND Surgery
DX: T82.858A Stenosis of other vascular prosthetic devices, implants and grafts, initial encounter (principal); I70.0 Atherosclerosis of aorta; I70.261 Atherosclerosis of native arteries of extremities with gangrene, right leg; I74.5 Embolism and thrombosis of iliac artery; I10 Essential (primary) hypertension; E11.9 Type 2 diabetes mellitus without complications; J44.9 Chronic obstructive pulmonary disease, unspecified; Z72.89 Other problems related to lifestyle; Z79.01 Long term (current) use of anticoagulants; Z79.82 Long term (current) use of aspirin; Z79.84 Long term (current) use of oral hypoglycemic drugs; Z79.891 Long term (current) use of opiate analgesic; Z79.899 Other long term (current) drug therapy; Z87.891 Personal history of nicotine dependence; Z82.3 Family history of stroke
CPT/HCPCS: 36200; 36415; 75630; 82565; 85025; 85610; 85730; 99156; 99157; C1751; C1769; C1894; J2250; J3010; Q9966; 36215; J1644; J2310

== ENCOUNTER 2019-11-18 11:00 | Outpatient (CLI) | payer MEDICARE, OTHER ==
[~2019-11-18 11:00] MED LIST changes: +HYDR12.517 PO; +METF500T17 PO
[2019-11-18] MEDS ORDERED: POTASSIUM PO (11:44)
[2019-11-18] MEDS ORDERED: GABA300C10 PO (11:44)
[2019-11-18] MEDS ORDERED: B12 PO (11:44)
[2019-11-18] MEDS ORDERED: FURO20TA3 PO (11:44)
[2019-11-18] MEDS ORDERED: VITAMIN D3 PO (11:44)
[2019-11-18 12:34] LABS: MEAN CORPUSCULAR HEMOGLOBIN 37.3 pg (27.5-34.5); MEAN CORPUSCULAR HGB CONC 33.8 g/dL (33.2-36.2); MEAN CORPUSCULAR VOLUME 110.1 fL (81-97); MEAN PLATELET VOLUME 6.6 fL (7.4-10.4); PLATELET COUNT 295 x10^3/uL (130-400); RED BLOOD COUNT 3.82 x10^6/uL (4.38-5.82); RED CELL DISTRIBUTION WIDTH 15.4 % (9.4-14.8)
[2019-11-18 12:43] LABS: INTERNATIONAL NORMALIZED RATIO 0.99 (0.93-1.1); PROTHROMBIN TIME 10.4 Seconds (9.6-11.5)
[2019-11-18 12:45] LABS: ALANINE AMINOTRANSFERASE 27 U/L (12-78); ALBUMIN 3.6 g/dL (3.4-5.0); ANION GAP 10 mmol/L (5-15); CALCIUM 8.9 mg/dL (8.5-10.1); CHLORIDE 106 mmol/L (98-107)
[2019-11-18 12:47] LABS: ALKALINE PHOSPHATASE 87 U/L (45-117); BILIRUBIN,TOTAL 0.7 mg/dL (0.2-1.0); TOTAL PROTEIN 6.9 g/dL (6.4-8.2)
[2019-11-18 13:05] LABS: BASOPHILS # (AUTO) 0.02 x10^3/uL (0-0.1); BASOPHILS % (AUTO) 0 % (0-1); EOSINOPHILS # (AUTO) 0.18 x10^3/uL (0-0.4); EOSINOPHILS % (AUTO) 2 % (1-7); LYMPHOCYTES # (AUTO) 1.46 x10^3/uL (1-3.4); LYMPHOCYTES % (AUTO) 19 % (22-44); MD SCAN; MONOCYTES # (AUTO) 0.76 x10^3/uL (0.2-0.8); MONOCYTES % (AUTO) 10 % (2-9); NEUTROPHILS # (AUTO) 5.39 x10^3/uL (1.8-6.8); NEUTROPHILS % (AUTO) 69 % (42-75)
[2019-11-25] MEDS ORDERED: HYDR-3240 PO (12:02)
== END 2019-11-18 23:59 | disposition home or self-care (01) ==
LOC: STAR 11:00
PROVIDERS: ATTEND Surgery
DX: Z01.818 Encounter for other preprocedural examination (principal); I70.218 Atherosclerosis of native arteries of extremities with intermittent claudication, other extremity
CPT/HCPCS: 36415; 80053; 85025; 85610; 85730; 93005

== ENCOUNTER 2020-04-13 12:11 | Outpatient (CLI) | payer MEDICARE, OTHER ==
[~2020-04-13 12:11] MED LIST changes: +B12 PO; +FURO20TA3 PO; +GABA300C10 PO; +HYDR-3240 PO; +POTASSIUM PO; +VITAMIN D3 PO
== END 2020-04-13 23:59 | disposition home or self-care (01) ==
LOC: CVU 12:11
PROVIDERS: ATTEND Surgery
DX: I70.203 Unspecified atherosclerosis of native arteries of extremities, bilateral legs (principal); I77.1 Stricture of artery
CPT/HCPCS: 93922; 93925

== ENCOUNTER → 2020-06-21 | Outpatient (CLI) | payer MEDICARE, OTHER | END | disposition home or self-care (01) | LOC: CFH 10:32 | DX: Z12.2 Encounter for screening for malignant neoplasm of respiratory organs (principal); J84.9 Interstitial pulmonary disease, unspecified; R91.8 Other nonspecific abnormal finding of lung field; Z87.891 Personal history of nicotine dependence | CPT/HCPCS: G0297 ==

== ENCOUNTER → 2021-06-08 | Outpatient (CLI) | payer MEDICARE, OTHER ==
[~2021-06-08] MED LIST changes: +AMLO-211 PO; -AMLO10TA8 PO; -CYCL-259 PO; +CYCL10TA2 PO; +HYDR-2214 PO; -HYDR-3240 PO; -LISI1TAB19 PO; +LISI1TAB39 PO; -LISI40TA PO; +LISI40TA9 PO; -OXYC-302 PO; -OXYC-307 PO; +OXYC-380 PO; +OXYC1TAB14 PO
== END | disposition home or self-care (01) ==
LOC: CFH 14:40
PROVIDERS: ATTEND Surgery
DX: M71.22 Synovial cyst of popliteal space [Baker], left knee (principal); I70.213 Atherosclerosis of native arteries of extremities with intermittent claudication, bilateral legs; M79.669 Pain in unspecified lower leg
CPT/HCPCS: 93970

== ENCOUNTER 2021-07-07 06:58 | Outpatient (CLI) | payer MEDICARE, OTHER | END 2021-07-07 23:59 | disposition home or self-care (01) | LOC: CVU 06:58 | PROVIDERS: ATTEND Surgery | DX: I70.213 Atherosclerosis of native arteries of extremities with intermittent claudication, bilateral legs (principal); I10 Essential (primary) hypertension; E78.5 Hyperlipidemia, unspecified; F17.210 Nicotine dependence, cigarettes, uncomplicated; Z95.820 Peripheral vascular angioplasty status with implants and grafts | CPT/HCPCS: 93922; 93925 ==